=== PATIENT | male | born 1960 | race Caucasian/White ===

== ENCOUNTER → 2017-01-02 | Outpatient (CLI) | payer OTHER ==
--- NOTE | ~2017-01-02 | S ---
[facility] [place] [address] SURGICAL PATH RPT PROCEDURE Name: NIKOLAS MELTON Room #: REG CL M.R.#: [id number] Admission: 01/02/17 Date of : 60 Discharge: Report #: [id number] Path Case #: [id number] PATHOLOGY REPORT COLLECTION DATE: 01/02/2017 RECEIVED DATE: 01/02/2017 SUBMITTING PHYS: Dr. Westley Quiles OTHER PHYS: Dr. Umair Frias SPECIMEN(S) RECEIVED: A.Bx at cecal polyp (forcep) B.Polyp at distal ascending (snare) C.Proximal transverse polyp (snare)(forcep) D.Polyp at mid transverse (snare) E.Bx of polyp at 40 cm (forcep) F.Polyp at 30 cm (snare) G.Polyp at 20 cm (snare) hot H.Polyp at rectal (snare) * * * * * * * * * * * * FINAL DIAGNOSIS: A. Polyp, at cecal polyp, endoscopic biopsy (forcep): - Inflammatory polyp. - Negative for dysplasia or malignancy. B. Polyp, at distal ascending, endoscopic biopsy (snare): - Hyperplastic polyp. - Negative for dysplasia. C. Polyp, Proximal transverse polyp, endoscopic biopsy (snare)(forcep): - Tubular adenoma; negative for high grade dysplasia. - One fragment showing a hyperplastic polyp; negative for dysplasia D. Polyp, at mid transverse, endoscopic biopsy (snare): - Tubular adenoma. - Negative for high grade dysplasia. E. Polyp, at 40 cm, endoscopic biopsy (forcep): - Tubular adenoma. - Negative for high grade dysplasia. F. Polyp, at 30 cm, endoscopic biopsy (snare): - Tubular adenoma admixed with hyperplastic changes. - Negative for high grade dysplasia. G. Polyp, at 20 cm, endoscopic biopsy (snare) hot: - Tubulovillous adenoma. - Negative for high grade dysplasia. H. Polyp, at rectal, endoscopic biopsy (snare): - Tubular adenoma; negative for high grade dysplasia. - Second fragment showing hyperplastic polyp without dysplasia. [address] [address] SURGICAL PATH RPT PROCEDURE Name: CHUYITANIKOLAS TEJADA Room #: REG [facility].#: [id number] Admission: 01/02/17 Date of : 60 Discharge: Report #: [id number] Path Case #: [id number] PATHOLOGIST: Geni Barrios M.D. REPORT ELECTRONICALLY SIGNED BY: Geni Barrios M.D. DATE/TIME: 01/05/2017 16:45 * * * * * * * * * * * * GROSS PATHOLOGY: A. Received in formalin labeled "Nikolas Melton, biopsy of cecal polyp 5," are 5 segments of rothman soft tissue measuring 1.3 x 0.6 x 0.2 cm in aggregate dimensions and ranging from 0.3 to 0.4 cm in maximum dimension. The specimen is submitted entirely in cassette A1. B. Received in formalin labeled "Nikolas Melton, polyp at distal ascending," are 2 segments of rothman soft tissue measuring 0.7 x 0.6 x 0.2 cm in aggregate dimensions and ranging from 0.4 to 0.6 cm in maximum dimension. The specimen is submitted entirely in cassette B1. C. Received in formalin labeled "Nikolas Realno, polyp at proximal transverse," are 6 segments of rothman soft tissue measuring 1.1 x 0.4 x 0.2 cm in aggregate dimensions and ranging from 0.3 to 0.6 cm in maximum dimension. The specimen is submitted entirely in cassette C1. D. Received in formalin labeled "Nikolas Realno, polyp mid transverse," are 3 segments of rothman soft tissue measuring 0.7 x 0.4 x 0.2 cm in aggregate dimensions and ranging from 0.2 to 0.4 cm in maximum dimension. The specimen is submitted entirely in cassette D1. E. Received in formalin labeled "Nikolas Melton, biopsy of polyp at 40 cm," are 6 segments of rothman soft tissue measuring 1.4 x 0.3 x 0.2 cm in aggregate dimensions and ranging from 0.2 to 0.4 cm in maximum dimension. The specimen is submitted entirely in cassette E1. F. Received in formalin labeled "Nikolas Cummingsardino, polyp at 30 cm," are 2 segments of rothman soft tissue measuring 0.4 x 0.4 x 0.2 cm in aggregate dimensions and ranging from 0.3 to 0.4 cm in maximum dimension. The specimen is submitted entirely in cassette F1. G. Received in formalin labeled "Nikolas Realno, polyp at 20 cm," are multiple (more than 10) segments of rothman soft tissue measuring 1.4 x 0.9 x 0.3 cm in aggregate dimensions and ranging from 0.2 to 0.7 cm in maximum dimension. The specimen is submitted entirely in cassette G1. H. Received in formalin labeled "Nikolas Realno, rectal polyp," are 2 segments of rothman soft tissue measuring 0.6 x 0.4 x 0.2 cm in aggregate dimensions and ranging from 0.3 to 0.5 cm in maximum dimension. The specimen is submitted entirely in cassette H1. (KAH; 01/03/2017) CLINICAL HISTORY: Pre-op diagnosis: Screening Post-op diagnosis: Multiple polyps [facility] [address] [place] [address] SURGICAL PATH RPT PROCEDURE Name: NIKOLAS MELTON Room #: REG [facility] M.R.#: [id number] Admission: 01/02/17 Date of : 60 Discharge: Report #: [id number] Path Case #: [id number] INITIAL CPT CODE(S): A; 40953 B; 90589 C; 13340 D; 23187 E; 86111 F; 51163 G; 18488 H; 63824 Professional services performed by [facility] at [address], [place] [address] Technical services performed by [facility] at [address] [place] [address]. [facility] [address] [place] [address] PHONE: [phone] DIRECTOR: Damien Bailey M.D. * * * END OF REPORT * * *
--- NOTE | ~2017-01-02 | P ---
[facility] [place] [address] PROCEDURE REPORT Name: ARELY BOOGIE [id number]: 01/02/17 Attend Phys: Umair Frias, Discharge: Date of : 60 Report #: [id number] THIS REPORT FOR: //name// Westley Quiles MD COPIES TO: Westley Quiles MD PROCEDURE PERFORMED: Colonoscopy DATE OF PROCEDURE: 01/02/2017 DICTATED BY: Westley Quiles MD REFERRING PHYSICIAN: Westley Quiles MD SCOPE(S) USED: [id number] Sn: [id number] POSTPROCEDURE DIAGNOSES: Colonic polyp(s), Benign rectal polyp(s) INDICATIONS: Routine screening-average risk EXTENT OF EXAMINATION: Ileum DESCRIPTION OF PROCEDURE: Informed consent was obtained with the benefits, risks, and alternatives to colonoscopy explained, including the risk of perforation, and the patient agreed to proceed. Patients last Colonoscopy was 01/01/2017. No contraindications were noted on physical exam. Monitored anesthesia care (MAC) was administered. Assessment of sedation: Complications- None. Cardiovascular- Stable. Orientation- Alert & Oriented. The quality of the prep was excellent. The procedure was performed with the patient in the left lateral decubitus position. Prior to the exam a digital exam was performed and it was unremarkable. The instrument was inserted to the ileum. The cecum was identified by the following: the ileocecal valve, the appendiceal orifice. In the rectum, a retroflex was performed. Estimated blood loss for the procedure was 5 ml. The patient tolerated the procedure well. There were no complications. The heart rate was normal. The oxygen saturation and skin color were normal. In the cecum, 5 diminutive polyps were seen. The polyps were not bleeding. The polyps were completely excised by cold forceps biopsy. The polyps were retrieved. In the distal ascending colon, a sessile polyp 5 mm by 6 mm was seen. The polyp was not bleeding. The polyp was completely excised by cold snare. The polyp was retrieved. In the proximal transverse colon, a sessile polyp 5 mm by 7 mm was seen. The polyp was not bleeding. The polyp was completely excised by cold snare. [facility] [address] [place] [address] PROCEDURE REPORT Name: JOIEMELINASONALARELY TEJADA Room #: REG [facility].#: [id number] Admission: 01/02/17 Attend Phys: Umair Frias, Discharge: Date of : 60 Report #: [id number] polyp was retrieved. In the mid-transverse colon, a sessile polyp 5 mm by 5 mm was seen. The polyp was not bleeding. The polyp was completely excised by cold snare. The polyp was retrieved. In the proximal sigmoid colon, a sessile polyp 5 mm by 7 mm was seen. The polyp was not bleeding. The polyp was completely excised by cold snare. The polyp was retrieved. In the mid sigmoid colon, a sessile polyp 5 mm by 5 mm was seen. The polyp was not bleeding. The polyp was completely excised by cold snare. The polyp was retrieved. In the distal sigmoid colon, a sessile polyp 5 mm by 12 mm was seen. The polyp was not bleeding. The polyp was completely excised by hot snare. The polyp was retrieved. In the rectum, a sessile polyp 5 mm by 5 mm was seen. The polyp was not bleeding. The polyp was completely excised by cold snare. The polyp was retrieved. THERAPEUTIC PROCEDURE(S) PERFORMED: Polypectomy Device: Cold forceps biopsy, Location: Cecum, Polypectomy Device: Cold snare, Location: Distal Ascending, Polypectomy Device: Cold snare, Location: Proximal Transverse, Polypectomy Device: Cold snare, Location: Mid Transverse, Polypectomy Device: Cold snare, Location: Proximal Sigmoid, Polypectomy Device: Cold snare, Location: Mid Sigmoid, Polypectomy Device: Hot snare, Location: Distal Sigmoid, Polypectomy Device: Cold snare, Location: Rectum SPECIMEN(S) OBTAINED: Container 1: cold forceps biopsy from Cecum, Container 2: cold snare from Distal Ascending, Container 3: cold snare from Proximal Transverse, Container 4: cold snare from Mid Transverse, Container 5: cold snare from Proximal Sigmoid at 40 cm, Container 6: cold snare from Mid Sigmoid at 30 cm, Container 7: hot snare from Distal Sigmoid at 20 cm, Container 8: cold snare from Rectum DISCHARGE INSTRUCTIONS: The patient was instructed to return to patient's primary care physician. Await biopsy results. He had 12 polyps that were removed. Consider a follow up colonoscopy in one year depending on the pathology. <ELECTRONICALLY SIGNED> By: Westley Quiles MD 03/09/17 1018 0738 Westley Quiles MD /zora
== END | disposition home or self-care (01) ==
LOC: GI 10:00
DX: Z12.11 Encounter for screening for malignant neoplasm of colon (principal); D12.0 Benign neoplasm of cecum; D12.2 Benign neoplasm of ascending colon; D12.3 Benign neoplasm of transverse colon; D12.5 Benign neoplasm of sigmoid colon; D12.8 Benign neoplasm of rectum
CPT/HCPCS: 62110; 62900

== ENCOUNTER → 2020-04-06 | Outpatient (CLI) | payer OTHER, BC | LOC: SJCVC 11:21 | PROVIDERS: ATTEND Internal Medicine Cardiovascular Disease | DX: Q23.1 Congenital insufficiency of aortic valve (principal); I10 Essential (primary) hypertension; R01.1 Cardiac murmur, unspecified; E78.00 Pure hypercholesterolemia, unspecified; Z79.899 Other long term (current) drug therapy ==

== ENCOUNTER → 2020-10-05 | Outpatient (CLI) | payer OTHER, BC | LOC: SJCVCIMAG 07:46 | PROVIDERS: ATTEND Internal Medicine Cardiovascular Disease | DX: R94.31 Abnormal electrocardiogram [ECG] [EKG] (principal); I08.2 Rheumatic disorders of both aortic and tricuspid valves; I45.2 Bifascicular block; E78.00 Pure hypercholesterolemia, unspecified; D68.59 Other primary thrombophilia; I45.10 Unspecified right bundle-branch block; I48.21 Permanent atrial fibrillation; E11.22 Type 2 diabetes mellitus with diabetic chronic kidney disease; I12.9 Hypertensive chronic kidney disease with stage 1 through stage 4 chronic kidney disease, or unspecified chronic kidney disease; N18.4 Chronic kidney disease, stage 4 (severe); E78.5 Hyperlipidemia, unspecified; E03.9 Hypothyroidism, unspecified; Z79.4 Long term (current) use of insulin; Z79.899 Other long term (current) drug therapy; Z87.891 Personal history of nicotine dependence; Z72.89 Other problems related to lifestyle; Z88.0 Allergy status to penicillin; Z88.1 Allergy status to other antibiotic agents ==

== ENCOUNTER 2020-10-12 15:28 | Emergency (ER) | payer OTHER, BC ==
[~2020-10-12] VITALS: Ht 175.3 cm; Wt 62.1 kg
[2020-10-12] MEDS ORDERED: ATORVASTATIN CA10 MG PO (17:11)
[2020-10-12 17:57] LABS: ABSOLUTE NEUTROPHILS 6.2 thou/uL (1.4-8.2); BASOPHILS 0.3 % (0.0-2.0); EOSINOPHILS 0.2 % (0.0-3.0); HEMATOCRIT 39.9 % (42.0-52.0); HEMOGLOBIN 13.5 gm/dL (14.0-18.0); LYMPHOCYTES 21.8 % (24.0-44.0); MCH 31.8 pg (26.0-34.0); MCHC 33.9 g/dL (28.0-37.0); MCV 93.9 fL (80.0-100.0); PLATELET COUNT 215 thou/uL (150-400); POLYS 70.7 % (36.0-66.0); RBC 4.25 mil/uL (4.50-6.00); WBC 8.7 thou/uL (4.0-11.0)
[2020-10-12 18:03] LABS: ANION GAP 3 mmol/L (7-16); BUN 27 mg/dL (7-18); CALCIUM 8.5 mg/dL (8.5-10.1); CHLORIDE 103 mmol/L (98-107); CO2 33 mmol/L (21-32); CREATININE 1.1 mg/dL (0.7-1.3); GLUCOSE 100 mg/dL (74-106); POTASSIUM 3.8 mmol/L (3.5-5.1); SODIUM 139 mmol/L (136-145)
[2020-10-12 18:12] LABS: TROPONIN-I <0.06 ng/mL (<0.06)
[2020-10-12 19:06] VITALS: BP 109/71
--- NOTE | 2020-10-14 11:03 | EKG ---
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
== END 2020-10-12 19:06 | disposition home or self-care (01) ==
LOC: ER 15:28
PROVIDERS: Nurse Practitioner
DX: R55 Syncope and collapse (principal); Z79.899 Other long term (current) drug therapy

== ENCOUNTER → 2021-04-26 | Outpatient (CLI) | payer OTHER, BC ==
[~2021-04-26] MED LIST: ATORVASTATIN CA10 MG PO
== END ==
LOC: SJCVC 13:09
PROVIDERS: ATTEND Internal Medicine Cardiovascular Disease
DX: I35.0 Nonrheumatic aortic (valve) stenosis (principal); I10 Essential (primary) hypertension; E78.00 Pure hypercholesterolemia, unspecified; R01.1 Cardiac murmur, unspecified; E78.5 Hyperlipidemia, unspecified; F32.9 Major depressive disorder, single episode, unspecified; G40.909 Epilepsy, unspecified, not intractable, without status epilepticus; Z79.899 Other long term (current) drug therapy